=== PATIENT | male | born 1995 | race Caucasian/White ===

== ENCOUNTER 2019-09-03 13:08 | Emergency (ER) | payer OTHER, SELFPAY ==
[2019-09-03 13:22] VITALS: BP 167/97; PULSE 69; RESP 18; TEMP 36.6; O2SAT 100
--- NOTE | 2019-09-03 13:28 | ED.GENADULT ---
HPI - General Adult General Chief complaint: Urogenital-Male Stated complaint: UTI Time Seen by Provider: 09/03/19 13:30 Source: patient and RN notes reviewed Mode of arrival: ambulatory Limitations: no limitations History of Present Illness HPI narrative: This is a 23 years old male presents to the office for an evaluation of possible UTI. Symptoms began last week with penile tip and growing discomfort. Denies urinary pain, frequency, hematuria, or discharge. Denies any sore lesion on his penile. He admits to unprotected sex about a month ago where he went to hospital at [facility] and got treated for STD. He also stated that he had thorough blood test which showed unremarkable finding. He has not engaged in any sexual activity since he got treated. Denies history of hernia. He did admit that he has not been drinking enough water lately. Related Data Home Medications Medication Instructions Recorded Confirmed No Home Medications 09/03/19 09/03/19 Allergies Allergy/AdvReac Type Severity Reaction Status Date / Time No Known Allergies Allergy Mild Verified 02/02/11 19:24 Review of Systems Review of Systems: Narrative: CONSTITUTIONAL: Denies fever ENT: Denies congestion CARDIOVASCULAR: Denies chest pain RESPIRATORY: Denies dyspnea, cough GASTROINTESTINAL: Denies abdominal pain, nausea, vomiting, diarrhea. SKIN: Denies rash/sore MUSCULOSKELETAL: Denies acute back pain NEUROLOGIC: Denies lightheaded PMFSH Social History Social History Gender identity (if verbalized by the patient): Male Comments At time of signature, I agree with nursing past medical, surgical, social and family history. There is no relevant family history pertinent to the presenting complaint. Exam Narrative: Exam Narrative: GENERAL: This is a well-nourished, well-developed patient, in no apparent distress. CARDIOVASCULAR: Regular rate and rhythm without murmurs, gallops, or rubs. RESPIRATORY: Clear to auscultation. Breath sounds equal bilaterally. No wheezes, rales, or rhonchi. GASTROINTESTINAL: Abdomen soft, non-tender, nondistended. Bowel sounds are active. No hepato-splenomegaly, or palpable masses. No guarding. NEURO: awake, alert, and oriented to person, place and time. There were no obvious focal neurologic abnormalities. Steady gait [place] Coma Scale Eye Opening: Spontaneous 4 [place] Coma Scale Motor: Obeys Commands 6 [place] Coma Scale Verbal: Oriented 5 Course Vital Signs Vital signs: Vital Signs Temperature 97.9 F 09/03/19 13:22 Pulse Rate 69 09/03/19 13:22 Respiratory Rate 18 09/03/19 13:22 Blood Pressure 167/97 H 09/03/19 13:22 Pulse Oximetry 100 09/03/19 13:22 Temperature 97.9 F 09/03/19 13:22 Pulse Rate 69 09/03/19 13:22 Respiratory Rate 18 09/03/19 13:22 Blood Pressure 167/97 H 09/03/19 13:22 Pulse Oximetry 100 09/03/19 13:22 Medical Decision Making MDM Narrative Medical decision making narrative: Elevated BP noted: patient is informed that they may have pre-hypertension or hypertension based on a blood pressure reading in the department. I recommend the patient call the primary care provider listed on their discharge instructions or a physician of their choice this week to arrange follow-up for further evaluation of possible pre-hypertension or hypertension within 1-2week. Discharge instructions reviewed with patient, as well as provided in writing per nursing staff. The instructions also include specific and strict return/GO TO THE ER as well as f/u information. All questions have been answered, and the patient deny any further questions with discharge and discharge plan. Differential Diagnosis Differential Diagnosis: Cystitis, Nephrolithiasis,Nephritis,pyelonephritis, epididymitis, syphilis Vital Signs Vital Signs: Vital Signs Temperature 97.9 F 09/03/19 13:22 Pulse Rate 69 09/03/19 13:22 Respiratory Rat
== END 2019-09-03 14:01 | disposition home or self-care (01) ==
PROVIDERS: Emergency Provider Nurse Practitioner
DX: Z04.89 Encounter for examination and observation for other specified reasons (principal)
CPT/HCPCS: 81003; 87086; 87491; 87591; 87661; 99203; G0463